=== PATIENT | male | born 1990 | race Caucasian/White ===

== ENCOUNTER 2019-10-07 12:17 | Inpatient (IN) | payer SELFPAY ==
[2019-10-07 12:21] VITALS: BMI 25.8
--- NOTE | 2019-10-07 12:22 | ED_ITS ---
Entered by Kendra Coy, acting as scribe for Daniela Ortiz MD, [facility] [place] HPI - Psych General: Chief Complaint: Psychiatric Symptoms Stated Complaint: PSYCH EVAL Time Seen by Provider: 10/07/19 12:22 Source: patient Mode of arrival: ambulatory Limitations: no limitations History of Present Illness: HPI Narrative: 29 yo Male presents to ED with complaint of suicidal ideation. Pt states that he said he would rather than listen to his mom bitching and then he was brought here. Pt states that they were arguing. Pt states that he does marijuana and speed. Pt states that he has a tv remote control with him because that is what they were arguing over. Pt states that it is his damn house and his tv. Pt states that he called the police to have his mom removed from his home and he said that he would rather be than listen to his mom bitching anymore and the police brought him here. Pt states that he is not crying because he is depressed, he is crying because he is pissed. complaint: suicidal ideation Onset (ago): hour(s) Associated symptoms: Deny auditory hallucinations Review of Systems General: Reports: 10 or more systems reviewed and unremarkable except in HPI and below Const: Denies: fever, chills or body aches Eyes: Denies: change in vision or blurry vision ENMT: Denies: throat pain, enlarged tonsils, painful swallowing, hoarseness, mouth pain or swelling of lips/tongue Card: Reports: chest pain; Denies: palpitations, irregular heart rhythm, edema or swelling of feet/ankles Resp: Denies: shortness of breath, productive cough or non-productive cough GI: Denies: abdominal pain, nausea or vomiting : Denies: flank pain, painful urination, urinary frequency, urinary urgency or urinary hesitancy Musc: Denies: neck pain, back pain or extremity swelling Skin/Breast: Denies: rash, itching or redness Neuro: Denies: headache, numbness in extremities or weakness in extremities Psych: Denies: auditory hallucinations Endo: Denies: excessive urination, excessive thirst or tired all the time PFS ED PFSH: Social History Smoking and tobacco status: current every day smoker Physical Exam Const: COMMON NORMALS: no apparent distress, average body habitus, oriented x3, no limitations, healthy appearing, alert and well nourished HENMT: COMMON NORMALS: normocephalic, head/scalp atraumatic and moist oral mucous membranes HEAD & SCALP: normocephalic and atraumatic Eye: COMMON NORMALS: PERRL, EOMs intact bilaterally, conjunctivae normal and no scleral icterus CONJUNCTIVA: Yes conjunctivae normal PUPIL: Yes PERRL Neck/C-Spine: COMMON NORMALS: full ROM, supple, no meningeal signs, no JVD and no carotid bruits Chest: COMMONS NORMALS: inspection of chest normal and palpation of chest normal Resp: COMMON NORMALS: normal respiratory effort, no retractions, no use of accessory muscles, clear to auscultation bilaterally and percussion normal AUSCULTATION: clear to auscultation bilaterally PERCUSSION: percussion normal Cardio: COMMON NORMALS: no JVD, regular rate, regular rhythm, S1 normal heart sound, S2 normal heart sound, no gallops, no clicks, no murmurs, no rub and peripheral pulses 2+ throughout RATE: regular rate RHYTHM: regular rhythm HEART SOUNDS: S1 normal and S2 normal PERIPHERAL PULSES: pulses 2+ throughout GI: COMMON NORMALS: normal to inspection, nondistended, normoactive bowel sounds, soft to palpation, non-tender, no hepatosplenomegaly, no masses and no bruits PALPATION: Yes soft and Yes no hepatosplenomegaly : COMMON NORMALS: Yes no CVA tenderness BLADDER/KIDNEY EXAM: Yes no CVA tenderness Back/Pelvis: COMMON NORMALS: no CVA tenderness Extremity: COMMON NORMALS: normal to inspection, full ROM, normal capillary refill, no calf tenderness and no pedal edema Neuro: COMMON NORMALS: oriented x3 SENSORIUM/ORIENTATION: Yes alert MENINGEAL SIGNS: Yes no meningeal signs Skin: COMMON NORMALS: no rashes or lesions noted, no wounds, skin turgor normal, no jaundice, no petechiae and no mottling GENERAL SKIN EXAM: no rashes or lesions noted and turgor normal MDM - Psych MDM Narrative: Medical decision making narrative: 29-year-old gentleman who was brought in by law enforcement after an argument with his mother and expressing desire to harm himself and suicidal ideations. He was medically cleared and admitted to the neuropsychiatric unit for further psychiatric management. The patient is voluntary at this time. Lab Data: Labs: Lab Results 10/07/19 10/07/19 10/07/19 Range/Units 12:50 12:50 15:55 WBC 7.9 (4.0-10.0) 10^3/ uL RBC 5.81 H (4.1-5.3) 10^6/u L Hgb 17.4 H (11.7-16.6) g/dL Hct 51.8 (42.0-52.0) % MCV 89.2 (80-94) fL MCH 29.9 (28.0-34.0) pg MCHC 33.6 (30.0-36.0) g/dL RDW 12.6 (12.1-15.1) % Plt Count 315 (130-400) 10^3/c mm MPV 8.8 (7.4-10.4) fL Neut % (Auto) 64.6 % Lymph % (Auto) 30.7 % Wolfe % (Auto) 4.0 % Eos % (Auto) 0.3 % Baso % (Auto) 0.1 % Neut # (Auto) 5.1 (1.8-7.7) 10^3/u L Lymph # (Auto) 2.4 (0.8-4.8) 10^3/u L Wolfe # (Auto) 0.3 (0.2-0.9) 10^3/u L Eos # (Auto) 0.0 (0.0-0.8) 10^3/u L Baso # (Auto) 0.0 (0.0-0.1) 10^3/u L Nucleated RBC % (a uto) 0 % Nucleated RBCs # 0.0 /100WBC Sodium 138 (136-145) mmol/L Potassium 3.8 (3.5-5.1) mmol/L Chloride 100 (98-107) mmol/L Carbon Dioxide 28 (22-29) mmol/L Anion Gap 13.8 (5-19) BUN 11 (6-20) mg/dL Creatinine 1.0 (0.7-1.2) mg/dL GFR Calculation 88.3 L (90-130) mL/min Glucose 137 H (65-115) mg/dL Calculated Osmolal ity 284 L (285-295) mOsm/k g Calcium 10.1 (8.5-10.5) mg/dL Total Bilirubin 0.3 (0.15-1.2) mg/dL AST 18 (0-40) U/L ALT 17 (0-41) U/L Alkaline Phosphata se 94 (40-130) IU/L Total Protein 7.3 (6.6-8.7) g/dL Albumin 4.6 (3.5-5.2) g/dL Globulin 2.7 (1.3-4.6) g/dL Urine Color Dark yellow (Yellow) Urine Appearance Clear (CLEAR) Urine pH 6.5 (5-7) Ur Specific Gravit y 1.015 (1.005-1.030) Urine Protein Neg (Negative) Urine Glucose (UA) Norm (Normal) Urine Ketones 1+ H (Negative) Urine Blood Neg (Negative) Urine Nitrate Negative (Negative) Urine Bilirubin Neg (NEGATIVE) Urine Urobilinogen 8 H (Negative) mg/dL Ur Leukocyte Stephanie ase Negative (Negative) Salicylates < 0.3 L (3-10) mg/dL Urine Opiates Scre en (Negative) ng/mL Acetaminophen < 5.0 L (10-30) ug/mL Ur Barbiturates Sc reen (Negative) ng/mL Ur Phencyclidine S crn (Negative) ng/mL Ur Amphetamines Sc reen (Negative) ng/mL U Benzodiazepines Scrn (Negative) ng/mL Urine Cocaine Scre en (Negative) ng/mL U Marijuana (THC) Screen (Negative) ng/mL Ethyl Alcohol < 10 (0-10) mg/dL 10/07/19 Range/Units 15:55 WBC (4.0-10.0) 10^3/ uL RBC (4.1-5.3) 10^6/u L Hgb (11.7-16.6) g/dL Hct (42.0-52.0) % MCV (80-94) fL MCH (28.0-34.0) pg MCHC (30.0-36.0) g/dL RDW (12.1-15.1) % Plt Count (130-400) 10^3/c mm MPV (7.4-10.4) fL Neut % (Auto) % Lymph % (Auto) % Wolfe % (Auto) % Eos % (Auto) % Baso % (Auto) % Neut # (Auto) (1.8-7.7) 10^3/u L Lymph # (Auto) (0.8-4.8) 10^3/u L Wolfe # (Auto) (0.2-0.9) 10^3/u L Eos # (Auto) (0.0-0.8) 10^3/u L Baso # (Auto) (0.0-0.1) 10^3/u L Nucleated RBC % (a uto) % Nucleated RBCs # /100WBC Sodium (136-145) mmol/L Potassium (3.5-5.1) mmol/L Chloride (98-107) mmol/L Carbon Dioxide (22-29) mmol/L Anion Gap (5-19) BUN (6-20) mg/dL Creatinine (0.7-1.2) mg/dL GFR Calculation (90-130) mL/min Glucose (65-115) mg/dL Calculated Osmolal ity (285-295) mOsm/k g Calcium (8.5-10.5) mg/dL Total Bilirubin (0.15-1.2) mg/dL AST (0-40) U/L ALT (0-41) U/L Alkaline Phosphata se (40-130) IU/L Total Protein (6.6-8.7) g/dL Albumin (3.5-5.2) g/dL Globulin (1.3-4.6) g/dL Urine Color (Yellow) Urine Appearance (CLEAR) Urine pH (5-7) Ur Specific Gravit y (1.005-1.030) Urine Protein (Negative) Urine Glucose (UA) (Normal) Urine Ketones (Negative) Urine Blood (Negative) Urine Nitrate (Negative) Urine Bilirubin (NEGATIVE) Urine Urobilinogen (Negative) mg/dL Ur Leukocyte Stephanie ase (Negative) Salicylates (3-10) mg/dL Urine Opiates Scre en Negative (Negative) ng/mL Acetaminophen (10-30) ug/mL Ur Barbiturates Sc reen Negative (Negative) ng/mL Ur Phencyclidine S crn Negative (Negative) ng/mL Ur Amphetamines Sc reen Positive H (Negative) ng/mL U Benzodiazepines Scrn Negative (Negative) ng/mL Urine Cocaine Scre en Negative (Negative) ng/mL U Marijuana (THC) Screen Positive H (Negative) ng/mL Ethyl Alcohol (0-10) mg/dL Discharge Plan Discharge Patient Disposition: Admitted As Inpatient Admit Provider: Marty Lares Clinical Impression: Suicidal ideation, Polysubstance abuse Condition: Stable Interventions: ED Discharge Assessment Last Done: 10/07/19 20:16 Discharge Date/Time: 10/07/19 20:35 Coding Level of Care Code ED Barrel Assembler Helper for Chg Fwd The documentation recorded by the Anneliese dash Carmen, accurately reflects the service I personally performed and the decisions made by Angel richardson Adegoke I, MD, [facility] [place] Oct 07, 2019 12:17
[2019-10-07 12:27] VITALS: BP 129/91; PULSE 115; RESP 16; TEMP 37.3; O2SAT 96
--- NOTE | 2019-10-07 12:50 | XR_ITS ---
WS: [id number] XR chest 2V* [id number] REASON FOR EXAM: cough FINDINGS: The lung walsh are normally aerated. No active infiltrate seen. No pneumonia, pleural effu shelbie, pulmonary edema. The hilar and apices areas are normal. The heart is normal mediastinal interfaces normal. No osseous abnormalities. XR/XR chest 2V* [id number] IMPRESSION: Negative chest for active pathology.
[2019-10-07 12:56] LABS: Basophils % 0.1 %; Eosinophils % 0.3 %; Hematocrit 51.8 % (42.0-52.0); Hemoglobin 17.4 g/dL (11.7-16.6); Lymphocytes # 2.4 10^3/uL (0.8-4.8); Lymphocytes % 30.7 %; Mean Corpuscular HGB Conc 33.6 g/dL (30.0-36.0); Mean Corpuscular Hemoglobin 29.9 pg (28.0-34.0); Mean Corpuscular Volume 89.2 fL (80-94); Mean Platelet Volume 8.8 fL (7.4-10.4); Monocytes # 0.3 10^3/uL (0.2-0.9); Neutrophils # 5.1 10^3/uL (1.8-7.7); Neutrophils % 64.6 %; Nucleated Red Blood Cells % 0 %; Platelet Count 315 10^3/cmm (130-400); Red Blood Count 5.81 10^6/uL (4.1-5.3); Red Cell Distribution Width 12.6 % (12.1-15.1); White Blood Count 7.9 10^3/uL (4.0-10.0)
[2019-10-07] MEDS: nicotine 21 mg Patch 1 PATCH TRANSDERMA (13:01)
[2019-10-07] MEDS: ibuprofen 600 mg Tablet PO (13:01)
[2019-10-07 13:11] LABS: Alanine Aminotransferase 17 U/L (0-41); Albumin Level 4.6 g/dL (3.5-5.2); Alkaline Phosphatase 94 IU/L (40-130); Anion Gap 13.8 (5-19); Aspartate Amino Transferase 18 U/L (0-40); Blood Urea Nitrogen 11 mg/dL (6-20); Calcium 10.1 mg/dL (8.5-10.5); Carbon Dioxide 28 mmol/L (22-29); Chloride 100 mmol/L (98-107); Globulin 2.7 g/dL (1.3-4.6); Glomerular Filtration Rate 88.3 mL/min (90-130); Glucose 137 mg/dL (65-115); Osmolality Calculated 284 mOsm/kg (285-295); Potassium 3.8 mmol/L (3.5-5.1); Sodium 138 mmol/L (136-145); Total Bilirubin 0.3 mg/dL (0.15-1.2); Total Protein 7.3 g/dL (6.6-8.7)
[2019-10-07 13:13] LABS: Acetaminophen < 5.0 ug/mL (10-30); Alcohol Level < 10 mg/dL (0-10); Salicylate < 0.3 mg/dL (3-10)
[2019-10-07 16:16] LABS: Add Urine Microscopic? NO
[2019-10-07 16:29] LABS: Glucose Urine UA Norm (Normal); Ketones Urine 1+ (Negative); Protein Urine Neg (Negative); Specific Gravity, Urine 1.015 (1.005-1.030); Urine Appearance Clear (CLEAR); Urine Color Dark Yellow (Yellow); pH Urine 6.5 (5-7)
[2019-10-07 16:30] LABS: Bilirubin Urine Neg (NEGATIVE); Blood Urine Neg (Negative); Leukocyte Esterase Urine Negative (Negative); Nitrate Urine Negative (Negative); Urobilinogen Urine 8 mg/dL (Negative)
[2019-10-07 16:38] LABS: Amphetamines Screen Urine Positive (Negative); Barbiturates Screen Urine Negative (Negative); Benzodiazepines Screen Urine Negative (Negative); Cocaine Screen Urine Negative (Negative); Opiate Screen Urine Negative (Negative); PCP Screen Urine Negative (Negative); THC Screen Urine Positive (Negative)
[2019-10-07] MEDS: acetaminophen 500 mg Tablet 1000 MG PO (17:55)
[2019-10-07 18:57] VITALS: BP 126/83; PULSE 73; RESP 19; TEMP 36.6; O2SAT 100
[2019-10-07] MEDS: LORazepam 2 mg Tablet PO (20:11)
[2019-10-07 20:16] VITALS: BP 126/80; PULSE 74; RESP 16; O2SAT 97
[2019-10-07 22:00] VITALS: BP 126/83; PULSE 73; RESP 19; TEMP 36.6; O2SAT 100
[2019-10-08 05:32] VITALS: BP 99/65; PULSE 76; RESP 17; TEMP 36.6; O2SAT 98
[2019-10-08] MEDS: acetaminophen 325 mg Tablet 650 MG PO (07:52)
[2019-10-08] MEDS: nicotine 2 mg Gum BUCCAL (11:05)
[2019-10-08 13:18] VITALS: BP 104/67; PULSE 81; RESP 18; TEMP 37.2; O2SAT 98
--- NOTE | 2019-10-08 13:19 | XR_ITS ---
WS: [id number] XR ribs RT mn 3V w CXR1V [id number] REASON FOR EXAM: trauma to right side FINDINGS: The right rib cage appears to be intact there is no definite fractures or displacements not ed. There was no pleural effusion seen. No pneumothorax. XR/XR ribs RT mn 3V w CXR1V [id number] IMPRESSION: Negative right rib study.
[2019-10-08] MEDS: meloxicam 7.5 mg tablet 15 MG PO (13:34)
--- NOTE | 2019-10-08 13:36 | PC.NURSE ---
OFF UNIT TO X-RAY. ACCOMPANIED BY SECURITY & FACING SLITTER
--- NOTE | 2019-10-08 13:49 | PC.NURSE ---
RETURN TO UNIT FROM X-RAY
--- NOTE | 2019-10-08 19:23 | PC.NURSE ---
pt given nicorette gum per pt request.
--- NOTE | 2019-10-08 19:29 | P.HP_ITS ---
Providers/Chief Complaint Admitting Physician: Marty Lares MD Chief Complaint: PSYCH EVAL HPI NPU History of Present Illness Chief complaint: I take nothing getting going in the morning and isolate marijuana to help me relax at night. History of present illness:Evert Worrell is a 29 year old male Who would like to have fine medication to replace his methamphetamine and marijuana use. His chief complaint is one of chronic pain. He says that when he tries to stop using methamphetamine he has a lot of pain cannot list any specific source of the pain other than it just hurts all over. It hurts in my joints. He says that he had something to get him going in the morning and to keep him from being in pain, he could quit using the methamphetamine. He has no intention of going to a rehabilitation program. He says They are bullshit. He went [facility] [place] years ago and they used more drugs at the rehabilitation program than out on the street.He says he is depressed. He has suicidal thoughts. However no time did he indicate an intent or plan. He is not employed. He is a engaged in no self-esteem goal-directed activities.Laboratory Tests 10/07/19 10/07/19 12:50 15:55 Urine Opiates Screen Negative Ur Barbiturates Screen Negative Ur Phencyclidine Scrn Negative Ur Amphetamines Screen Positive H U Benzodiazepines Scrn Negative Urine Cocaine Screen Negative U Marijuana (THC) Screen Positive H Ethyl Alcohol < 10 ER physician note: 29 yo Male presents to ED with complaint of suicidal ideation. Pt states that he said he would rather than listen to his mom bitching and then he was brought here. Pt states that they were arguing. Pt states that he does marijuana and speed. Pt states that he has a tv remote control with him because that is what they were arguing over. Pt states that it is his [employer] house and his tv. Pt states that he called the police to have his mom removed from his home and he said that he would rather be than listen to his mom bitching anymore and the police brought him here. Pt states that he is not crying because he is depressed, he is crying because he is pissed. Mental health history:He has no prior psychiatric hospitalizations. He says he has tried all kinds of antidepressant medications and said none of them helped him and they all had side effects. He is not interested in trying another antidepressant. Social history:He currently lives with his mother. Legal history:He has convictions on possession in 2017, DWI in 2016, and speeding in 2012. Past medical history:Please see his emergency room nursing notes Mental Status Exam: Patient is immediately dismissive and challenging and attitude. He is not believed to be along the form of as he provides minimal information and refuses to provide information and he doesn't think is important. Appearance: hygiene is fair; no gross neurological deficits., gait is unremarkable; AIMS=0 Speech: Speech is of normal rate and rhythm and easily understood. Thought processes: Thought processes are abstract. Judgment is adequate for safety. Psychotic processes: There is no indication of guarding or paranoia. There is no attention to the internal stimuli. Auditory and visual hallucinations are denied. Judgment: Insight is fair. Problem solving skills are adequate for safety. Orientation: The patient is oriented to person, place time and situation. Memory: no deficits noted in immediate, intermediate, or remote spheres. Attention: The patient is alert and interpersonally engaged. Language: Verbalizations are coherent. Fund of knowledge: Fund of knowledge is adequate. Affect/Mood: Affect is consistent with a depressed mood. denied suicidal ideation Affective range appropriate. Psychosis: perception unimpaired except through cognitive distortion; reality testing intact. Diagnoses: methamphetamine abuse Assessment: perhaps he will gain insight and engage in treatment planning to haydee l with the issues that led to his hospitalization Treatment plan: Due to the psychiatric conditions and treatment listed in the Assessment and Plan - the patient requires continued hospitalization. Will provide a safe and therapeutic environment for patient.. Will continue inpatient treatment to allow for medication adjustment and monitoring. Will continue q15 min safety checks. Start Mobic 15 mg for pain Monitor patient's mood, sleep, appetite, and behavior closely. Encourage patient to participate in individual and group therapeutic sessions [place]. Estimated length of stay 5 days The expected benefits and potential side effects of patient's psychiatric medications were discussed with the patient. The patient understands and consents to treatment.CRITERIA FOR DISCHARGE: stable on medications and no longer an imminent risk Meds NPU Home Medications Medication Instructions Recorded Confirmed Type No Known Home Medications 10/07/19 10/07/19 History Allergies Allergy/AdvReac Type Severity Reaction Status Date / Time No Known Allergies Allergy Verified 10/07/19 12:25 PFSH NPU PFSH: Social History Smoking and tobacco status: current every day smoker Vitals/I&O/Wt Last Vital Signs Temp 98.9 F 10/08/19 13:18 Pulse 81 10/08/19 13:18 Resp 18 10/08/19 13:18 BP 104/67 10/08/19 13:18 Pulse Ox 98 10/08/19 13:18 Weight last 48 hrs Weight 72.575 kg Data NPU : 10/07/19 12:50 10/07/19 12:50 Involuntary Hold Information 96 Hour Hold: 96 Hour Involuntary Admission: No Attestations NPU Medical Necessity Statement*: Patient to remain in the hospital 1-2 more nights until we can det termine medication tolerance. Coding Level of Care Code Acute Automatic Bandsaw Tender for Franko Polk
--- NOTE | 2019-10-08 20:35 | PC.NURSE ---
pt has no scheduled HS meds to be given at this time.
[2019-10-08 21:27] VITALS: BP 98/52; PULSE 83; RESP 20; TEMP 36.9; O2SAT 98
[2019-10-09 05:56] VITALS: BP 111/74; PULSE 58; RESP 17; TEMP 36.8; O2SAT 98
[2019-10-09] MEDS: meloxicam 7.5 mg tablet 15 MG PO (08:00)
[2019-10-09] MEDS: acetaminophen 325 mg Tablet 650 MG PO (08:00)
--- NOTE | 2019-10-09 12:50 | PM.NDC ---
Reason for Visit Reason for Visit: Reason For Visit: Critical access hospital Course Discharge Summary Chief complaint: I take methamphetamine to get going in the morning and marijuana to help me relax at night. History of present illness:Evert Worrell is a 29 year old male Who would like to have medication to replace his methamphetamine and marijuana use. His chief complaint is one of chronic pain. He says that when he tries to stop using methamphetamine he has a lot of pain but cannot list any specific source of the pain other than it just hurts all over. It hurts in my joints. He says that if he had something to get him going in the morning and to keep him from being in pain, he could quit using the methamphetamine. He has no intention of going to a rehabilitation program. He says They are bullshit. He went to one in [place] years ago and they used more drugs at the rehabilitation program than out on the street. He says he is depressed. He has suicidal thoughts. However no time did he indicate an intent or plan. He is not employed. He is a engaged in no self-esteem goal-directed activities.Laboratory Tests 10/07/19 10/07/19 12:50 15:55 Urine Opiates Screen Negative Ur Barbiturates Screen Negative Ur Phencyclidine Scrn Negative Ur Amphetamines Screen Positive H U Benzodiazepines Scrn Negative Urine Cocaine Screen Negative U Marijuana (THC) Screen Positive H Ethyl Alcohol < 10 ER physician note: 29 yo Male presents to ED with complaint of suicidal ideation. Pt states that he said he would rather than listen to his mom bitching and then he was brought here. Pt states that they were arguing. Pt states that he does marijuana and speed. Pt states that he has a tv remote control with him because that is what they were arguing over. Pt states that it is his [employer] house and his tv. Pt states that he called the police to have his mom removed from his home and he said that he would rather be than listen to his mom bitching anymore and the police brought him here. Pt states that he is not crying because he is depressed, he is crying because he is pissed. Mental health history:He has no prior psychiatric hospitalizations. He says he has tried all kinds of antidepressant medications and said none of them helped him and they all had side effects. He is not interested in trying another antidepressant. Social history:He currently lives with his mother. Legal history:He has convictions on possession in 2017, DWI in 2016, and speeding in 2013. Past medical history:Please see his emergency room nursing notes Diagnoses: methamphetamine abuse narcissistic personality disorder Assessment: HE is extremely sensitive to perceived disrespect and dismissive of any treatment recommendations that do not fit with his perceived needs. Perhaps he will gain insight and engage in treatment planning to deal with the issues that led to his hospitalization. Hospital Day #2: He admits that we aren't doing anything to help him here. He is willing to take an antidepressant with the idea that it will help him get off of methamphetamine. He mentioned something about going to the [facility] for rehab. He was educated that perhaps the executive secretary social welfare could help him explore rehab services. He then returned to asking for medication so that he would not have to use meth to get up in the morning and to focus his attention. Maybe you could give me something to help with that. He then requested to be discharged because we were disrespecting him. Discharge Mental Status Exam: Patient is dismissive and challenging in attitude. He is not believed to be a reliable source of information. Appearance: hygiene is fair; no gross neurological deficits., gait is unremarkable; AIMS=0 Speech: Speech is of normal rate and rhythm and easily understood. Thought processes: Thought processes are abstract. Judgment is adequate for safety. Psychotic processes: There is no indication of guarding or paranoia. There is no attention to the internal stimuli. Auditory and visual hallucinations are denied. Judgment: Insight is fair. Problem solving skills are adequate for safety. Orientation: The patient is oriented to person, place time and situation. Memory: no deficits noted in immediate, intermediate, or remote spheres. Attention: The patient is alert and interpersonally engaged. Language: Verbalizations are coherent. Fund of knowledge: Fund of knowledge is adequate. Affect/Mood: Affect is consistent with a depressed mood. denied suicidal ideation Affective range appropriate. Psychosis: perception unimpaired except through cognitive distortion; reality testing intact. Involuntary Hold Information 96 Hour Hold: 96 Hour Involuntary Admission: No Discharge Data Data Completed and Pending: Completed Studies During Hospitalization Category Date Time Status XR chest 2V* 7104 6 Stat Exams 10/07/19 12:50 Completed XR ribs RT mn 3V w CXR1V [id number] Rout ine Exams 03/18/20 13:19 Completed Vitals: Last Vital Signs Temp 98.2 F 10/09/19 05:56 Pulse 58 L 10/09/19 05:56 Resp 17 10/09/19 05:56 BP 111/74 10/09/19 05:56 Pulse Ox 98 10/09/19 05:56 Discharge Plan Discharge Patient Disposition: Home, Self-Care Condition: Stable Prescriptions: No Action No Known Home Medications RF: 0 Discharge Orders: Discharge Order (Routine); Ordered 10/09/19 Ordered By: Marty Lares Discharge Attestations NPU Time Spent in Discharge Care*: greater than 30 min Coding Level of Care Code Acute Music Intern for Franko Polk
[2019-10-09 13:59] VITALS: BP 111/74; PULSE 58; RESP 17; TEMP 36.8; O2SAT 98
== END 2019-10-09 14:15 | disposition home or self-care (01) | DRG 897 ==
LOC: ER 13:19 → NP 19:31
PROVIDERS: Admitting Provider Psychiatry & Neurology Psychiatry; Emergency Provider Family Medicine; Visit Provider Psychiatry & Neurology Psychiatry
DX: F15.229 Other stimulant dependence with intoxication, unspecified (principal); R45.851 Suicidal ideations; F12.229 Cannabis dependence with intoxication, unspecified; F60.81 Narcissistic personality disorder; F17.210 Nicotine dependence, cigarettes, uncomplicated
CPT/HCPCS: 12345; 36415; 71046; 71101; 80053; 80306; 80307; 81003; 85025; 99284; A9270

== ENCOUNTER 2019-12-03 19:19 | Emergency (ER) | payer SELFPAY ==
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
[2019-12-03 19:09] VITALS: BP 129/79; PULSE 100; RESP 22; TEMP 36.8; O2SAT 100; BMI 28.1
[2019-12-03] MEDS: iohexol 300 mg/mL 100 mL Btl IV (19:21)
[2019-12-03 19:38] LABS: Basophils % 0.1 %; Eosinophils % 0.5 %; Hematocrit 41.1 % (42.0-52.0); Hemoglobin 13.8 g/dL (11.7-16.6); Lymphocytes # 2.2 10^3/uL (0.8-4.8); Lymphocytes % 27.5 %; Mean Corpuscular HGB Conc 33.6 g/dL (30.0-36.0); Mean Corpuscular Hemoglobin 30.3 pg (28.0-34.0); Mean Corpuscular Volume 90.1 fL (80-94); Mean Platelet Volume 8.8 fL (7.4-10.4); Monocytes # 0.4 10^3/uL (0.2-0.9); Monocytes % 4.7 %; Neutrophils # 5.5 10^3/uL (1.8-7.7); Neutrophils % 67.1 %; Nucleated Red Blood Cells % 0 %; Platelet Count 251 10^3/cmm (130-400); Red Blood Count 4.56 10^6/uL (4.1-5.3); Red Cell Distribution Width 12.9 % (12.1-15.1); White Blood Count 8.1 10^3/uL (4.0-10.0)
[2019-12-03 19:54] LABS: Alanine Aminotransferase 18 U/L (0-41); Albumin Level 3.9 g/dL (3.5-5.2); Alkaline Phosphatase 75 IU/L (40-130); Anion Gap 10.1 (5-19); Aspartate Amino Transferase 18 U/L (0-40); Blood Urea Nitrogen 8 mg/dL (6-20); Calcium 9.3 mg/dL (8.5-10.5); Carbon Dioxide 26 mmol/L (22-29); Chloride 103 mmol/L (98-107); Creatine Phosphokinase 70 U/L (39-308); Globulin 2.1 g/dL (1.3-4.6); Glomerular Filtration Rate 99.8 mL/min (90-130); Glucose 106 mg/dL (65-115); Osmolality Calculated 276 mOsm/kg (285-295); Potassium 4.1 mmol/L (3.5-5.1); Sodium 135 mmol/L (136-145); Total Bilirubin 0.2 mg/dL (0.15-1.2)
[2019-12-03 19:56] LABS: Troponin(5th) Baseline 6 ng/mL (0-15)
[2019-12-03] MEDS: ondansetron 2 mg/ML SDV 2 mL 4 MG IVP (20:12)
[2019-12-03 20:37] VITALS: BP 116/78; PULSE 98; RESP 18; O2SAT 99
[2019-12-03 20:55] LABS: Amphetamines Screen Urine Positive (Negative); Bacteria Urine TRACE; Barbiturates Screen Urine Negative (Negative); Benzodiazepines Screen Urine Negative (Negative); Bilirubin Urine Neg (NEGATIVE); Blood Urine Neg (Negative); Cocaine Screen Urine Negative (Negative); Glucose Urine UA Norm (Normal); Hyaline Casts Urine 0-4; Ketones Urine Negative (Negative); Leukocyte Esterase Urine Negative (Negative); Nitrate Urine Negative (Negative); Opiate Screen Urine Negative (Negative); PCP Screen Urine Negative (Negative); Protein Urine Neg (Negative); Specific Gravity, Urine 1.005 (1.005-1.030); Squamous Epithelial Cell Urine 0-4 (0-5); THC Screen Urine Positive (Negative); Urine Appearance Clear (CLEAR); Urine Color Yellow (Yellow); Urobilinogen Urine Norm (Negative); pH Urine 7 (5-7)
[2019-12-03 20:56] LABS: Add Urine Culture? No
--- NOTE | 2019-12-03 21:02 | ECG_ITS ---
Measurements Intervals [place] Rate: 95 P: 78 GA: 147 QRS: 83 QRSD: 94 T: 83 QT: 330 QTc: 416 SINUS RHYTHM No previous ECG available for comparison Electronically Signed On 12-03-2019 20:36:26 CDT by Paula Bhardwaj M.D. [email or web address]
== END 2019-12-03 20:38 | disposition home or self-care (01) ==
PROVIDERS: Emergency Provider Emergency Medicine
DX: T75.4XXA Electrocution, initial encounter (principal); Y35.833A Legal intervention involving a conducted energy device, suspect injured, initial encounter; F17.210 Nicotine dependence, cigarettes, uncomplicated
CPT/HCPCS: 12345; 36415; 70450; 71260; 74177; 80053; 80306; 81001; 82550; 84484; 85025; 93005; 96361; 96374; 99283; 99284; J2405; Q9967

== ENCOUNTER 2020-01-07 09:10 | Emergency (ER) | payer SELFPAY ==
[2020-01-07 09:13] VITALS: BMI 27.4
[2020-01-07 09:18] VITALS: BP 136/80; PULSE 91; RESP 16; TEMP 36.9; O2SAT 98
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
== END 2020-01-07 09:28 | disposition home or self-care (01) ==
PROVIDERS: Emergency Provider Nurse Practitioner Family
DX: K14.6 Glossodynia (principal); F17.210 Nicotine dependence, cigarettes, uncomplicated; X10.0XXA Contact with hot drinks, initial encounter
CPT/HCPCS: 12345; 99281

== ENCOUNTER 2021-09-21 09:10 | Emergency (ER) | payer SELFPAY ==
--- NOTE | 2021-09-21 09:12 | XR_ITS ---
WS: [id number] Left foot, 3 views, 09/21/2021 Clinical Data: trauma Comparison: None. Findings: There is a transverse fracture of the midshaft of the left second metatarsal. No other fractures are seen. The joint spaces and soft tissues are normal. XR/XR foot LT min 3V* [id number] Impression: Fracture of the midshaft of the left second metatarsal.
[2021-09-21 09:42] VITALS: BP 131/91; PULSE 74; RESP 18; TEMP 37; O2SAT 98; BMI 34.7
--- NOTE | 2021-09-21 09:53 | ED_ITS ---
HPI - Extremity Injury (Lower) General: Chief Complaint: Extremity Injury, Lower Stated Complaint: Possible broken left foot Time Seen by Provider: 09/21/21 09:16 Source: patient Mode of arrival: ambulatory Limitations: no limitations History of Present Illness: Patient is a 31-year-old male who presents to ED today for evaluation following a left foot injury that occurred approximately 3 to 4 days ago after he dropped a 500 pound piece of machinery onto the foot. Patient states he has been hobbling around since the injury. He has noticed swelling and bruising to the foot. He has been icing and elevating the extremity. complaint: foot injury Onset (ago): day(s) Place: home Severity: moderate Relieving factors: immobilization Exacerbating factors: weight bearing, movement and palpation Context: direct blow Associated symptoms: Reports no associated symptoms Other symptoms: none Treatments prior to arrival: cold therapy Review of Systems Musc: Reports: extremity pain (L foot) and extremity swelling (L foot) Neuro: Denies: numbness in extremities or sensory changes [facility] ED PFSH: Medical History (Updated 09/21/21 @ 09:59 by CHAYO Zarate) Polysubstance abuse Surgical History No history of previous surgery Social History Smoking and tobacco status: current every day smoker Alcohol intake: current Physical Exam Const: COMMON NORMALS: no acute distress, patient oriented x3, no limitations and alert GENERAL APPEARANCE: cooperative Extremity: GENERAL: Yes normal exam except as noted LEFT LOWER EXTREMITY: Yes foot & digits (swelling and ecchymosis throughout dorsum of foot; no obvious deformity) Left foot and digits: Yes palpation (maximum tenderness to mid dorsal foot), Yes ROM (normal) and Yes neurovascular exam (normal) Neuro: COMMON NORMALS: patient oriented x3, moves all extremities, no focal motor deficits and no sensory deficits noted SENSORIUM/ORIENTATION: Yes alert Course Vital Signs: Vital signs: Vital Signs Temperature 98.6 F 09/21/21 09:42 Pulse Rate 74 09/21/21 09:42 Respiratory Rate 18 09/21/21 09:42 Blood Pressure 131/91 09/21/21 09:42 Pulse Oximetry 98 09/21/21 09:42 MDM - Extremity Injury (Lower) Medical Decision Making Patient has a non-displaced 2nd metatarsal fracture. He does not want any type of splint/cam walker as he states he must return to work because he has no insurance and needs the money. He will be placed in a firm soled darco shoe here and recommended to wear a very supportive firm boot while at work which he agrees to. Will give crutches that he can use as well if needed when he isn't working. Will place referral to ortho/podiatry for further evaluation/treatment. Discharge Plan Discharge Patient Disposition: Home Clinical Impression: Fracture of metatarsal bone of left foot Qualifiers: Encounter type: initial encounter Metatarsal bone: second Fracture type: closed Fracture alignment: nondisplaced Qualified Code(s): S92.325A - Nondisplaced fracture of second metatarsal bone, left foot, initial encounter for closed fracture Condition: Stable Prescriptions: New hydrocodone-acetaminophen 5-325 mg tablet 1 tab PO Q6H PRN (Reason: pain) Qty: 14 0RF ibuprofen 800 mg tablet 800 mg PO Q8H PRN (Reason: pain) Qty: 20 0RF No Action OraMagicRx Mouthwash See Rx Instructions .ROUTE .COMPLEX Qty: 60 0RF Rx Instructions: Swish and spit 5 ml as needed to control pain in tongue Discharge Orders: Discharge ED (Routine); Ordered 09/21/21 Ordered By: Maryjane Fox Activity Restrictions/Additional Instructions: As we discussed you need to wear a firm soled boot at all times while at work. You need to wear the surgical shoe when you are not working. You may also use the crutches as needed to limit weightbearing. Continue to ice and elevate the extremity as much as possible. Case management should contact you shortly for your follow-up orthopedic appointment. Stand Alone Forms: Work/School Release Coding Level of Care Code ED Link Trainer Operator for Franko Polk
--- NOTE | 2021-09-21 10:48 | DCPLANNER ---
Addendum entered by Akosua Farnsworth 09/23/21 13:44: physician relations manager spoke with [facility], was told that clinic has not been able to reach patient to schedule an appointment. Original Note: physician relations manager had message to schedule a follow up appointment for patient with ortho. physician relations manager called the ortho clinic, spoke with Rashmi, gave clinic patients information. physician relations manager was told that patients information would be printed and reviewed. Clinic will call patient with appointment information.
== END 2021-09-21 11:00 | disposition home or self-care (01) ==
PROVIDERS: Emergency Provider Physician Assistant
DX: S92.325A Nondisplaced fracture of second metatarsal bone, left foot, initial encounter for closed fracture (principal); F17.210 Nicotine dependence, cigarettes, uncomplicated; W20.8XXA Other cause of strike by thrown, projected or falling object, initial encounter
CPT/HCPCS: 73630; 99283; E0114

== ENCOUNTER → 2021-09-27 11:20 | Outpatient (BNVA) | payer SELFPAY | PROVIDERS: Referring Provider Physician Assistant; Visit Provider Podiatrist Foot & Ankle Surgery | DX: S99.921A Unspecified injury of right foot, initial encounter (principal); X58.XXXA Exposure to other specified factors, initial encounter | CPT/HCPCS: 73630 ==

== ENCOUNTER 2021-09-27 16:17 | Outpatient (CLI) | payer SELFPAY | END 2021-09-27 16:18 | disposition home or self-care (01) | LOC: SPT 16:17 | PROVIDERS: Visit Provider Podiatrist Foot & Ankle Surgery | DX: Z46.89 Encounter for fitting and adjustment of other specified devices (principal); S92.302D Fracture of unspecified metatarsal bone(s), left foot, subsequent encounter for fracture with routine healing; X58.XXXD Exposure to other specified factors, subsequent encounter | CPT/HCPCS: 97760; L4361 ==

== ENCOUNTER → 2021-10-12 15:46 | Outpatient (BNVA) | payer SELFPAY | PROVIDERS: Visit Provider Podiatrist Foot & Ankle Surgery | DX: S92.332A Displaced fracture of third metatarsal bone, left foot, initial encounter for closed fracture (principal); X58.XXXA Exposure to other specified factors, initial encounter | CPT/HCPCS: 73630 ==

== ENCOUNTER → 2021-11-09 14:47 | Outpatient (BNVA) | payer SELFPAY | PROVIDERS: Visit Provider Podiatrist Foot & Ankle Surgery | DX: S92.322D Displaced fracture of second metatarsal bone, left foot, subsequent encounter for fracture with routine healing (principal); X58.XXXD Exposure to other specified factors, subsequent encounter | CPT/HCPCS: 73630 ==

== ENCOUNTER → 2022-06-20 12:25 | Outpatient (BNVA) | payer BC, SELFPAY | PROVIDERS: Visit Provider Emergency Medicine | DX: R50.9 Fever, unspecified (principal); R51.9 Headache, unspecified; J10.1 Influenza due to other identified influenza virus with other respiratory manifestations; G44.89 Other headache syndrome | CPT/HCPCS: 87400; 87426 ==

== ENCOUNTER → 2023-01-17 16:32 | Outpatient (BNVA) | payer BC, SELFPAY | PROVIDERS: PCP Family Medicine; Visit Provider Surgery | DX: R22.9 Localized swelling, mass and lump, unspecified (principal) | CPT/HCPCS: 88307 ==

== ENCOUNTER 2023-08-31 01:57 | Emergency (ER) | payer MEDICAID, SELFPAY ==
[2023-08-31 01:58] VITALS: BP 134/93; PULSE 79; RESP 16; TEMP 36.7; O2SAT 100; BMI 25.1
--- NOTE | 2023-08-31 02:10 | ED_ITS ---
HPI - General Adult 2 General: Chief complaint: General Medical Stated complaint: Drug detox Time Seen by Provider: 08/31/23 01:58 History of Present Illness: Patient presents to the ER by EMS with complaints of wanting drug detox. Patient states he is a frequent meth user last use about a day and a half ago and wants detox and to get off the drugs. Patient's only complaint is has a couple superficial lumps 1 on his chest 1 is left groin that he thinks are old healing spider bites and he says he has teeth pain on the left side. Other than he is patient has no complaints. Patient denies suicidal or homicidal ideation. Review of Systems 2 General: Reports: 10 or more systems reviewed and unremarkable except in HPI and below PFSH ED 2 PFSH: Medical History Polysubstance abuse Surgical History History of excision of epidermal inclusion cyst No history of previous surgery Social History Smoking and tobacco/nicotine status: current every day tobacco/nicotine user Alcohol intake: current Substance/Drug Use: current Physical Exam 2 Const: COMMON NORMALS: no acute distress, average body habitus, patient oriented x3, no limitations, healthy appearing, alert and well nourished HENMT: COMMON NORMALS: normocephalic, atraumatic, hearing grossly normal bilaterally, external ears normal, Normal external nose present, moist oral mucous membranes and oropharynx normal HEAD & SCALP: normocephalic and atraumatic NOSE: Normal external nose present EXTERNAL EAR: Yes external ears normal Eye: COMMON NORMALS: Equal, round and reactive pupils present, EOMs intact bilaterally, conjunctivae normal and no scleral icterus CONJUNCTIVA: Yes conjunctivae normal PUPIL: Yes Equal, round and reactive pupils present Neck/C-Spine: COMMON NORMALS: no JVD Chest: COMMONS NORMALS: normal inspection of the chest and normal palpation of entire chest wall Resp: COMMON NORMALS: normal respiratory effort, No retractions, No use of accessory muscles and clear to auscultation bilaterally AUSCULTATION: clear to auscultation bilaterally Cardio: COMMON NORMALS: no JVD, regular rate, regular rhythm, S1 normal heart sound present, S2 normal heart sound present, No gallops present (Cardio), No clicks present (Cardio), No murmurs present (Cardio) and No rub (Cardio) R ATE: regular rate RHYTHM: regular rhythm HEART SOUNDS: S1 normal heart sound present and S2 normal heart sound present GI: COMMON NORMALS: Normal to inspection, nondistended, normoactive bowel sounds present, non-tender, No hepatosplenomegaly present and no masses P ALPATION: Yes No hepatosplenomegaly present Neuro: COMMON NORMALS: patient oriented x3 SENSORIUM/ORIENTATION: Yes alert Course 2 Vital Signs: Vital signs: Vital Signs Temperature 98.1 F 08/31/23 01:58 Pulse Rate 79 08/31/23 01:58 Respiratory Rate 16 08/31/23 01:58 Blood Pressure 134/93 08/31/23 01:58 Pulse Oximetry 100 08/31/23 01:58 Oxygen Delivery Me thod Room Air 08/31/23 01:58 MDM - General Adult Medical Decision Making Patient was worked up for medical clearance standpoint. It was explicitly described to the patient that we are not a drug detox, we do not have inpatient drug detox and in the best we can do for him is have case management call around and see if they can get him an outpatient detox later in the day. Patient is okay with this Differential Diagnosis Substance abuse Medical Records I reviewed the patient's medical records. Lab Data I reviewed the patient's lab results. 08/31/23 02:24 08/31/23 02:24 Laboratory Results WBC 8.12 10^3/uL (3.29-11.43) 08/31/23 02:24 RBC 4.87 10^6/uL (3.85-5.65) 08/31/23 02:24 Hgb 15.10 g/dL (11.27-16.99) 08/31/23 02:24 Hct 44.1 % (37-53) 08/31/23 02:24 MCV 90.6 fl (82-101) 08/31/23 02:24 MCH 31.0 pg (27-33) 08/31/23 02: MCHC 34.2 g/dL (30-55) 08/31/23 02:24 RDW 13.1 % (12.1-15.1) 08/31/23 02:24 Plt Count 241 10^3/cmm (157-399) 08/31/23 02:24 MPV 9.2 fL (7.4-10.4) 08/31/23 02:24 Neut % (Auto) 65.0 % 08/31/23 02:24 Lymph % (Auto) 27.8 % 08/31/23 02:24 Crockett % (Auto) 5.3 % 08/31/23 02:24 Eos % (Auto) 1.2 % 08/31/23 02:24 Baso % (Auto) 0.5 % 08/31/23 02:24 Neut # (Auto) 5.27 10^3/uL (1.8-7.7) 08/31/23: Lymph # (Auto) 2.3 10^3/uL (0.8-4.8) 08/31/23 02: Crockett # (Auto) 0.4 10^3/uL (0.2-0.9) 08/31/23 02:24 Eos # (Auto) 0.1 10^3/uL (0.0-0.8) 08/31/23 02:24 Baso # (Auto) 0.0 10^3/uL (0.0-0.1) 08/31/23 02:24 Nucleated RBC % (auto) 0 % 08/31/23 02: Nucleated RBCs # 0.0 /100WBC 08/31/23 02:24 Sodium 139 mmol/L (136-145) 08/31/23 02:24 Potassium 3.9 mmol/L (3.5-5.1) 08/31/23 02:24 Chloride 102 mmol/L (98-107) 08/31/23 02:24 Carbon Dioxide 26 mmol/L (22-29) 08/31/23 02:24 Anion Gap 14.9 (5-19) 08/31/23 02:24 BUN 15 mg/dL (6-20) 08/31/23 02:24 Creatinine 0.9 mg/dL (0.7-1.2) 08/31/23 02:24 GFR Calculation 97.2 mL/min (90-130) 08/31/23 02:24 Glucose 113 mg/dL (65-115) 08/31/23 02:24 Calculated Osmolality 290 mOsm/kg (285-295) 08/31/23 02:24 Calcium 9.1 mg/dL (8.5-10.5) 08/31/23 02:24 Total Bilirubin 0.3 mg/dL (0.15-1.2) 08/31/23 02:24 AST 23 U/L (0-40) 08/31/23 02:24 ALT 18 U/L (0-41) 08/31/23 02:24 Alkaline Phosphatase 79 U/L (40-130) 08/31/23 02:24 Total Protein 6.5 g/dL (6.6-8.7) L 08/31/23 02:24 Albumin 4.0 g/dL (3.5-5.2) 08/31/23 02: Globulin 2.5 g/dL (1.3-4.6) 08/31/23 02:24 TSH 5.02 uIU/mL (0.27-4.20) H 08/31/23 02:24 Urine Color Yellow (Yellow) 08/31/23 02:28 Urine Appearance Clear (CLEAR) 08/31/23 02:28 Urine pH 7 (5-7) 08/31/23 02:28 Ur Specific Lovell 1.015 (1.005-1.030) 08/31/23 02:28 Urine Protein Neg (Negative) 08/31/23 02:28 Urine Glucose (UA) Norm (Normal) 08/31/23 02:28 Urine Ketones Negative (Negative) 08/31/23 02:28 Urine Blood Neg (Negative) 08/31/23 02:28 Urine Nitrate Negative (Negative) 08/31/23 02:28 Urine Bilirubin Neg (Negative) 08/31/23 02:28 Urine Urobilinogen Neg mg/dL (Negative) 08/31/23 02:28 Ur Leukocyte Esterase Negative (Negative) 08/31/23 02:28 Salicylates < 0.3 mg/dL (3-10) L 08/31/23 02:24 Urine Opiates Screen Negative ng/mL (Negative) 08/31/23 02:28 Acetaminophen < 5.0 ug/mL (10-30) L 08/31/23 02:24 Ur Barbiturates Screen Negative ng/mL (Negative) 08/31/23 02:28 Ur Phencyclidine Scrn Negative ng/mL (Negative) 08/31/23 02:28 Ur Amphetamines Screen Positive ng/mL (Negative) H 08/31/23 02:28 U Benzodiazepines Scrn Negative ng/mL (Negative) 08/31/23 02:28 Urine Cocaine Screen Negative ng/mL (Negative) 08/31/23 02:28 U Marijuana (THC) Screen Positive ng/mL (Negative) H 08/31/23 02:28 Ethyl Alcohol < 10 mg/dL (0-10) 08/31/23 02:24 No radiology studies performed this visit Discharge Plan Discharge Patient Disposition: Home Clinical Impression: Polysubstance abuse Condition: Stable Prescriptions: No Action ibuprofen 600 mg tablet 600 mg PO TID PRN (Reason: pain) Qty: 60 0RF sulfamethoxazole-trimethoprim [Bactrim DS] 800-160 mg tablet 1 tab PO BID 7 Days Qty: 14 0RF Discharge Orders: Discharge ED (Routine); Ordered 08/31/23 Ordered By: Earl Potts Referrals: Juliocesar Lawrence MD [Physician] - 1 week Patient Instructions: Polysubstance Use Disorder (ED) Activity Restrictions/Additional Instructions: Your workup to the ER shows you are medically clear. You have been referred to case management they should be contacting you within the next day or 2 to help set you up with outpatient rehab programs. If you have not heard from them please feel free to call. Coding Level of Care Code ED Felt Coverer for Franko Polk
[2023-08-31 02:27] LABS: Basophils % 0.5 %; Eosinophils # 0.1 10^3/uL (0.0-0.8); Eosinophils % 1.2 %; Hematocrit 44.1 % (37-53); Lymphocytes # 2.3 10^3/uL (0.8-4.8); Lymphocytes % 27.8 %; Mean Corpuscular HGB Conc 34.2 g/dL (30-55); Mean Corpuscular Volume 90.6 fl (82-101); Mean Platelet Volume 9.2 fL (7.4-10.4); Monocytes # 0.4 10^3/uL (0.2-0.9); Monocytes % 5.3 %; Neutrophils # 5.27 10^3/uL (1.8-7.7); Nucleated Red Blood Cells % 0 %; Platelet Count 241 10^3/cmm (157-399); Red Blood Count 4.87 10^6/uL (3.85-5.65); Red Cell Distribution Width 13.1 % (12.1-15.1); White Blood Count 8.12 10^3/uL (3.29-11.43)
[2023-08-31 02:41] LABS: Add Urine Microscopic? NO; Charge for UA Resulting for Rev
[2023-08-31 02:44] LABS: Bilirubin Urine Neg (Negative); Blood Urine Neg (Negative); Glucose Urine UA Norm (Normal); Ketones Urine Negative (Negative); Leukocyte Esterase Urine Negative (Negative); Nitrate Urine Negative (Negative); Protein Urine Neg (Negative); Specific Gravity, Urine 1.015 (1.005-1.030); Urine Appearance Clear (CLEAR); Urine Color Yellow (Yellow); Urobilinogen Urine Neg (Negative); pH Urine 7 (5-7)
[2023-08-31 02:51] LABS: Amphetamines Screen Urine Positive (Negative); Barbiturates Screen Urine Negative (Negative); Benzodiazepines Screen Urine Negative (Negative); Cocaine Screen Urine Negative (Negative); Opiate Screen Urine Negative (Negative); PCP Screen Urine Negative (Negative); THC Screen Urine Positive (Negative)
[2023-08-31 02:53] LABS: Alanine Aminotransferase 18 U/L (0-41); Alkaline Phosphatase 79 U/L (40-130); Aspartate Amino Transferase 23 U/L (0-40); Blood Urea Nitrogen 15 mg/dL (6-20); Calcium 9.1 mg/dL (8.5-10.5); Carbon Dioxide 26 mmol/L (22-29); Chloride 102 mmol/L (98-107); Globulin 2.5 g/dL (1.3-4.6); Glomerular Filtration Rate 97.2 mL/min (90-130); Glucose 113 mg/dL (65-115); Osmolality Calculated 290 mOsm/kg (285-295); Sodium 139 mmol/L (136-145); Total Bilirubin 0.3 mg/dL (0.15-1.2); Total Protein 6.5 g/dL (6.6-8.7)
[2023-08-31 02:54] LABS: Acetaminophen < 5.0 ug/mL (10-30); Alcohol Level < 10 mg/dL (0-10); Anion Gap 14.9 (5-19); Potassium 3.9 mmol/L (3.5-5.1); Salicylate < 0.3 mg/dL (3-10)
[2023-08-31 03:10] LABS: Thyroid Stimulating Hormone 5.02 uIU/mL (0.27-4.20)
--- NOTE | 2023-08-31 10:08 | DCPLANNER ---
Message was sent to [facility] and Kenyatta berrios to get this patient set up with outpatient rehab for polysubstance abuse. message was sent at [phone] on 08/31/23
== END 2023-08-31 04:06 | disposition home or self-care (01) ==
PROVIDERS: Emergency Provider Emergency Medicine
DX: F19.10 Other psychoactive substance abuse, uncomplicated (principal); Z72.0 Tobacco use
CPT/HCPCS: 36415; 80053; 80306; 80307; 81003; 84443; 85025; 99283

== ENCOUNTER 2023-10-22 12:17 | Emergency (ER) | payer BC, MEDICAID, SELFPAY ==
[2023-10-22] VITALS (13 sets, daily range): BP systolic 124–154; BP diastolic 69–106; PULSE 85–161; RESP 15–20; TEMP 36.9; O2SAT 91–100
--- NOTE | 2023-10-22 12:24 | XR_ITS ---
WS: [id number] Examination: XR knee LT 1-2V 71800 Reason for Exam: fall Date: October 22, 2023 Comparison: None. Findings: The bone density is maintained. There is no destruction. There is no fracture or dislocation. No join t effusion is present. IMPRESSION: No acute bony abnormalities identified involving the left knee.
--- NOTE | 2023-10-22 12:24 | XR_ITS ---
WS: [id number] Examination: XR foot LT min 3V* [id number] Reason for Exam: injury Date: October 22, 2023 Comparison: November 09, 2021 Findings: There is a lateral peritalar dislocation. Calcaneus and foot bilateral to the talus. There is a chip fracture off the talus. A healed second metatarsal fracture is noted. Impression: There is lateral peritalar dislocation with associated chip fracture. A CT of the ankle/foot would be of benefit to evaluate other potential fractures when the patient can tolerate. Orthopedic consultation is needed. I called this report to Danielle in the emergency room
--- NOTE | 2023-10-22 12:24 | XR_ITS ---
WS: [id number] Examination: XR ankle LT min 3V* [id number] Reason for Exam: injury Date: October 22, 2023 Comparison: None. Findings: The bone density is maintained. There are findings of lateral peritalar dislocation. The tibiotalar joint and ankle mortise appear pr eserved. There is lateral dislocation of the calcaneus, midfoot, and forefoot relative to the talus There is a chip fracture identified along the medial aspect of the distal talus. Impression: There is lateral peritalar dislocation. The calcaneus and foot lie laterally. Associated chip fracture is noted. CT may be of benefit for complete evaluation. Orthopedic consultation is needed. I called these results to Danielle in the emergency room at 1:48 p.m. October 22, 2023.
[2023-10-22] MEDS: ondansetron 2 mg/ML SDV 2 mL 4 MG IVP (12:30)
[2023-10-22] MEDS: HYDROmorphone 1 mg/mL INJ 1 mL IVP ×2 (12:30→13:05)
--- NOTE | 2023-10-22 12:33 | ED_ITS ---
HPI - Extremity Problem General: Chief complaint: Extremity Injury, Lower Stated complaint: left leg pain Time Seen by Provider: 10/22/23 12:24 Source: patient Mode of arrival: ambulatory Limitations: no limitations History of Present Illness: 33-year-old male states he had fell out of a tree today states that he landed on his left foot he has obvious deformity his left ankle he is complaining severe pain in his left ankle he rates it a 10 out of 10. He denies any other injuries denies hitting his head denies any loss of consciousness. Associated symptoms: Deny chest pain, fever(s) or rash Review of Systems Const: Denies: fever(s) or chills ENMT: Denies: throat pain or dental pain Card: Denies: chest pain Resp: Denies: dyspnea GI: Denies: abdominal pain, nausea, vomiting or diarrhea Musc: Reports: extremity pain; Denies: neck pain or back pain Skin/Breast: Denies: rash Neuro: Denies: headache(s) PFSH ED PFSH: Medical History Polysubstance abuse Surgical History History of excision of epidermal inclusion cyst No history of previous surgery Social History Smoking and tobacco/nicotine status: current every day tobacco/nicotine user Alcohol intake: current Substance/Drug Use: current Physical Exam Const: COMMON NORMALS: patient oriented x3 HENMT: COMMON NORMALS: normocephalic and atraumatic HEAD & SCALP: normocephalic and atraumatic Eye: COMMON NORMALS: Equal, round and reactive pupils present and EOMs intact bilaterally PUPIL: Yes Equal, round and reactive pupils present Neck/C-Spine: COMMON NORMALS: full ROM and supple Chest: COMMONS NORMALS: normal inspection of the chest Resp: COMMON NORMALS: normal respiratory effort Extremity: NARRATIVE EXTREMITY EXAM: Obvious deformity left ankle distal pulses sensation intact Neuro: COMMON NORMALS: patient oriented x3, moves all extremities and no focal motor deficits Psych: COMMON NORMALS: mental status grossly normal, Normal thought process present and cooperative THOUGHT PROCESS: Normal thought process present Skin: COMMON NORMALS: no rashes or lesions noted and no wounds GENERAL SKIN EXAM: no rashes or lesions noted Procedures Orthopedic Joint Reduction Joint #1: Time Out Performed: Yes Side: left Joint Reduction Location: other (talar) Analgesia: procedural sedation Technique used: traction/counter-traction Post-reduction neuro exam: intact Post-reduction vascular: intact Post Reduction X-Ray Obtained: Yes Post Reduction X-Ray Results: reduced Splint Applied: Yes Patient Tolerated Procedure: well Procedural Sedation Indication: fracture/dislocation reduction ASA Class: I Time of Last PO Intake: 08:00 Preparation: pulse oximeter Ketamine: IV and IM (350) Ketamine dose (mg): 150 IV Propofol dose (mg): 170 Course Vital Signs: Vital signs: Vital Signs Temperature 98.5 F 10/22/23 12:25 Pulse Rate 109 H 10/22/23 14:39 Respiratory Rate 18 10/22/23 14:39 Blood Pressure 124/88 10/22/23 14:39 Pulse Oximetry 98 10/22/23 14:39 Oxygen Delivery Me thod Room Air 10/22/23 14:39 Oxygen Flow Rate 6 10/22/23 13:57 MDM - Extremity (Nontraumatic) Medical Decision Making Patient presents with a talar dislocation was reduced in the ER patient was seen by podiatry and is to follow-up tomorrow morning with podiatry we will prescribe him pain meds he is return if worsening he understands agrees to plan. Medical Records I reviewed the patient's medical records. All radiology interpretation(s) finalized by discharge Discharge Plan Discharge Patient Disposition: Home Clinical Impression: Closed dislocation of left talus Condition: Stable Prescriptions: New hydrocodone-acetaminophen 5-325 mg tablet 1 tab PO Q6H PRN (Reason: pain) Qty: 14 0RF No Action aspirin 325 mg Tablet 975 mg PO Q8H PRN (Reason: Pain) Discharge Orders: Discharge ED (Routine); Ordered 10/22/23 Ordered By: Moreno Rivera Referrals: Reji Villalobos DPM [Physician] - 1-3 days Discharge Diet: Advance as tolerated Discharge Activity: Use walker/crutches as instructed Patient Instructions: Dislocation - Ankle, Opioid Safety Coding Level of Care Code ED Range Feeder for Franko Polk
--- NOTE | 2023-10-22 13:37 | XR_ITS ---
WS: [id number] Examination: XR ankle LT 2V [id number] Reason for Exam: post reduction Date: October 22, 2023, 2:02 p.m. Comparison: October 22, 2023, 1:16 p.m. Findings: A splint has been applied to the left ankle. There has been reduction of the lateral peritalar dislocation. While the fine bony details obscured. I suspect there are talar fractures and probably possibly calca francis fractures. CT may be of benefit for further evaluation. Impression: Satisfactory reduction of the peritalar dislocation. Please see above.
[2023-10-22] MEDS: propofol 10 mg/mL SDV 20 mL 100 MG IVP (13:43)
[2023-10-22] MEDS: propofol 10 mg/mL SDV 20 mL 70 MG IVP (13:47)
[2023-10-22] MEDS: ketamine 100 mg/mL Inj 5 mL 350 MG IM (13:48)
[2023-10-22] MEDS: ketamine 100 mg/mL Inj 5 mL 150 MG IVP (14:10)
--- NOTE | 2023-10-22 14:24 | PC.NURSE ---
pt still not oriented, restless post sedation
--- NOTE | 2023-10-22 14:32 | PM.CONSULT ---
Providers/Reason For Consult Consulting Physician/Specialty*: Reji Villalobos D.P.M. Reason for Consult*: Left subtalar joint dislocation History of Present Illness History of Present Illness Evert Worrell is a 33 year old male Medications/Allergies Home Medications Medication Instructions Recorded Confirmed Last Taken Type aspirin 325 mg tablet 975 mg PO Q8H PRN Pain 10/22/23 10/23/23 Unknown History hydrocodone 5 mg-acetaminophen 325 1 tab PO Q6H PRN pain #14 tabs 10/22/23 10/23/23 Unknown Rx mg tablet Allergies Allergy/AdvReac Type Severity Reaction Status Date / Time No Known Allergies Allergy Verified 10/23/23 06:59 PFSH Acute PFSH: Medical History Polysubstance abuse Surgical History History of excision of epidermal inclusion cyst No history of previous surgery Social History Smoking and tobacco/nicotine status: current every day tobacco/nicotine user Alcohol intake: current Substance/Drug Use: current Vitals/I&O/Wt Last Vital Signs Temp 98.5 F 10/22/23 12:25 Pulse 108 H 10/22/23 14:31 Resp 16 10/22/23 14:31 BP 124/88 10/22/23 14:31 Pulse Ox 98 10/22/23 14:31 O2 Del Method Room Air 10/22/23 14:31 O2 Flow Rate 6 10/22/23 13:57 Weight last 48 hrs Weight 170 lb Coding Level of Care Code Acute Code for Chg Fwd
--- NOTE | 2023-10-23 10:59 | ED_ITS ---
HPI - Extremity Problem General: Chief complaint: Extremity Injury, Lower Stated complaint: left leg pain Time Seen by Provider: 10/22/23 12:24 Source: patient Mode of arrival: ambulatory Limitations: no limitations History of Present Illness: 33-year-old male fell out of a tree land ed on a rock, presents with pain of the left foot with obvious deformity. Associated symptoms: Deny chest pain, fever(s) or rash Review of Systems General: Reports: 10 or more systems reviewed and unremarkable except in HPI and below Const: Denies: fever(s) or chills Eyes: Denies: change in vision Card: Denies: chest pain or palpitations Resp: Denies: dyspnea or productive cough GI: Denies: abdominal pain, nausea or vomiting : Denies: flank pain Musc: Reports: extremity pain, joint pain, joint stiffness, limited range of motion and deformity Skin/Breast: Reports: skin tenderness; Denies: rash Neuro: Reports: difficulty walking; Denies: numbness in extremities, sensory changes or frequent falls Psych: Denies: suicidal ideation Yobany/Lymph: Denies: easy bruising [facility] ED PFSH: Medical History Polysubstance abuse Surgical History History of excision of epidermal inclusion cyst No history of previous surgery Social History Smoking and tobacco/nicotine status: current every day tobacco/nicotine user Alcohol intake: current Substance/Drug Use: current Physical Exam Narrative: EXAM NARRATIVE: GENERAL: Patient is alert and oriented ?3 and in no acute distress. The following is a focused bilateral lower extremity exam. VASCULAR: Dorsalis pedis and posterior tibial arteries palpable +2. Capillary refill time less than 3 seconds to the distal hallux bilaterally. Calf is supple and nontender proximally and distally. No pedal edema appreciated. Pedal hair growth present. NEUROLOGICAL: Epicritic and protopathic sensations grossly intact to the lower extremities. +2 Achilles tendon reflex noted bilaterally. Negative Tinel sign upon percussion of lower extremity nerves. DERMATOLOGICAL: Lower extremity skin is well-hydrated, normal texture and turgor. There are no open sores or lesions noted to the lower extremities. No abrasions or lacerations to left foot, no open wound, no fracture blisters, mild ecchymosis at the right foot. MUSCULOSKELETAL: Pain at the left rear foot. Able to wiggle toes on command. Able to dorsiflex and plantarflex left ankle. No pain at the lateral malleolus or medial malleolus of the left ankle, no pain at left Lisfranc. No gross deformity post reduction. Course Vital Signs: Vital signs: Vital Signs Temperature 98.5 F 10/22/23 12:25 Pulse Rate 109 H 10/22/23 14:39 Respiratory Rate 18 10/22/23 14:39 Blood Pressure 124/88 10/22/23 14:39 Pulse Oximetry 98 10/22/23 14:39 Oxygen Delivery Me thod Room Air 10/22/23 14:39 Oxygen Flow Rate 6 10/22/23 13:57 MDM - Extremity (Nontraumatic) Medical Decision Making Closed dislocation of left subtalar joint and talonavicular joint. Anatomic reduction was performed by emergency room physician under sedation and splint with stirrup was applied. Patient advised to remain strict nonweightbearing, elevate left foot while resting. He has crutches. Will avoid opiates given his history of polysubstance abuse and his current efforts in rehabilitation. Follow-up tomorrow morning in podiatry clinic 7 AM for repeat x-ray to monitor reduction status. All radiology interpretation(s) finalized by discharge Discharge Plan Discharge Patient Disposition: Home Clinical Impression: Closed dislocation of left talus Qualifiers: Encounter type: subsequent encounter Qualified Code(s): S93.05XD - Dislocation of left ankle joint, subsequent encounter Condition: Stable Prescriptions: New hydrocodone-acetaminophen 5-325 mg tablet 1 tab PO Q6H PRN (Reason: pain) Qty: 14 0RF No Action aspirin 325 mg Tablet 975 mg PO Q8H PRN (Reason: Pain) Discharge Orders: Discharge ED (Routine); Ordered 10/22/23 Ordered By: Moreno Rivera Referrals: Reji Villalobos DPM [Physician] - 1-3 days Discharge Diet: Advance as tolerated Discharge Activity: Use walker/crutches as instructed Patient Instructions: Dislocation - Ankle, Opioid Safety Coding Level of Care Code ED Finisher Hand for Franko Polk
--- NOTE | 2023-10-24 08:08 | DCPLANNER ---
Message sent to Podiatry for a follow up - dislocated ankle
== END 2023-10-22 15:53 | disposition home or self-care (01) ==
PROVIDERS: Emergency Provider Emergency Medicine
DX: S93.05XA Dislocation of left ankle joint, initial encounter (principal); Z72.0 Tobacco use; W14.XXXA Fall from tree, initial encounter
CPT/HCPCS: 27840; 73560; 73562; 73600; 73610; 73630; 94799; 96372; 96374; 96375; 99285; 99291; J1170; J2405; J2704; J3490

== ENCOUNTER → 2023-10-23 06:52 | Outpatient (BNVA) | payer BC, MEDICAID, SELFPAY | PROVIDERS: Visit Provider Podiatrist Foot & Ankle Surgery | DX: S93.05XD Dislocation of left ankle joint, subsequent encounter; W14.XXXD Fall from tree, subsequent encounter | CPT/HCPCS: 73610 ==

== ENCOUNTER → 2023-11-01 11:34 | Outpatient (BNVA) | payer BC, MEDICAID, SELFPAY | PROVIDERS: Visit Provider Podiatrist Foot & Ankle Surgery | DX: S93.05XD Dislocation of left ankle joint, subsequent encounter (principal); W14.XXXD Fall from tree, subsequent encounter | CPT/HCPCS: 29405; 73610 ==

== ENCOUNTER → 2023-11-19 08:19 | Outpatient (BNVA) | payer BC, MEDICAID, SELFPAY | PROVIDERS: Visit Provider Podiatrist Foot & Ankle Surgery | DX: S93.05XD Dislocation of left ankle joint, subsequent encounter (principal); W14.XXXD Fall from tree, subsequent encounter | CPT/HCPCS: 73610 ==

== ENCOUNTER → 2023-12-03 07:45 | Outpatient (BNVA) | payer BC, MEDICAID, SELFPAY | PROVIDERS: Visit Provider Podiatrist Foot & Ankle Surgery | DX: S93.05XD Dislocation of left ankle joint, subsequent encounter (principal); W14.XXXD Fall from tree, subsequent encounter | CPT/HCPCS: 73630 ==

== ENCOUNTER 2024-06-14 22:15 | Emergency (ER) | payer BC, MEDICAID, SELFPAY ==
[2024-06-14 22:19] VITALS: BP 118/76; PULSE 65; RESP 17; TEMP 36.4; O2SAT 99; BMI 27.4
[2024-06-14] MEDS: lidocaine 1% 10 ML INJ INTRADERMA (22:28)
[2024-06-14] MEDS: tetanus-dipt-pertussis 0.5 mL SDV IM (22:29)
--- NOTE | 2024-06-14 22:33 | ED_ITS ---
HPI - Wound/Laceration General: Chief Complaint: Wound/Laceration Stated Complaint: Rt Eye Injury Time Seen by Provider: 06/14/24 22:20 Source: patient Mode of arrival: ambulatory Limitations: no limitations History of Present Illness: 33-year-old male states he had his right eyebrow on a car door just prior to arrival does have a laceration over his right eyebrow roughly 3 cm. He denies any loss of consciousness has minimal pain. Associated symptoms: Denies chills or fever(s) Related Data Home Medications Medication Instructions Recorded Confirmed aspirin 325 mg tablet 975 mg PO Q8H PRN Pain 10/22/23 12/03/23 Previous Rx's Medication Instructions Recorded CAM walker #1 ea 12/03/23 Allergies Allergy/AdvReac Type Severity Reaction Status Date / Time No Known Allergies Allergy Verified 06/14/24 22:18 Review of Systems Const: Denies: fever(s), chills, body aches or change in appetite Eyes: Denies: blurry vision or eye discomfort ENMT: Denies: throat pain or dental pain Card: Denies: chest pain GI: Denies: abdominal pain Musc: Denies: neck pain or back pain Neuro: Denies: headache(s) PFSH ED PFSH: Medical History Polysubstance abuse Surgical History History of excision of epidermal inclusion cyst No history of previous surgery Social History Smoking and tobacco/nicotine status: current every day tobacco/nicotine user Alcohol intake: current Substance/Drug Use: current Physical Exam Const: COMMON NORMALS: no acute distress, patient oriented x3 and healthy appearing HENMT: COMMON NORMALS: normocephalic HEAD & SCALP: normocephalic OTHER: 3cm laceration to right eyebrow Eye: COMMON NORMALS: Equal, round and reactive pupils present and EOMs intact bilaterally PUPIL: Yes Equal, round and reactive pupils present Neck/C-Spine: COMMON NORMALS: full ROM and supple Chest: COMMONS NORMALS: normal inspection of the chest Resp: COMMON NORMALS: normal respiratory effort Extremity: COMMON NORMALS: normal to inspection and full ROM Neuro: COMMON NORMALS: patient oriented x3, moves all extremities and no focal motor deficits Psych: COMMON NORMALS: mental status grossly normal, Normal thought process present and cooperative THOUGHT PROCESS: Normal thought process present Skin: COMMON NORMALS: no rashes or lesions noted GENERAL SKIN EXAM: no rashes or lesions noted Procedures Laceration Laceration 1: Site: face Side (If applicable): right Size (cm): 3 Description: linear Depth: simple, single layer Local Anesthetic: lidocaine 1% Amount of anesthesia used (mL): 8 Pre-repair: wound explored, irrigated extensively and deep structures intact Skin layer closed with: nylon Size (cm): 5-0 Number of sutures: 4 Technique: simple, interrupted Course Vital Signs: Vital signs: Vital Signs Temperature 97.6 F 06/14/24 22:19 Pulse Rate 65 06/14/24 22:19 Respiratory Rate 17 06/14/24 22:19 Blood Pressure 118/76 06/14/24 22:19 Pulse Oximetry 99 06/14/24 22:19 Oxygen Delivery Me thod Room Air 06/14/24 22:19 MDM - Wound/Laceration Medical Decision Making Patient presents here with laceration to right eyebrow did repair laceration with sutures no major head injury no loss conscious he stable for discharge suture removal in 7 days Medical Records I reviewed the patient's medical records. No radiology studies performed this visit Discharge Plan Discharge Patient Disposition: Home Clinical Impression: Laceration Condition: Stable Prescriptions: No Action (DME) CAM walker See Rx Instructions .Route .MEDSUPPLY Qty: 1 0RF Rx Instructions: As directed aspirin 325 mg Tablet 975 mg PO Q8H PRN (Reason: Pain) Discharge Orders: Discharge ED (Routine); Ordered 06/14/24 Ordered By: Moreno Rivera Discharge Diet: Advance as tolerated Discharge Activity: Resume usual activity Patient Instructions: Care For Your Stitches (ED), Laceration (ED) Activity Restrictions/Additional Instructions: suture removal in 7 days Coding Level of Care Code ED Construction Job Cost Estimator for Franko Polk
== END 2024-06-14 22:42 | disposition home or self-care (01) ==
PROVIDERS: Emergency Provider Emergency Medicine
DX: S01.81XA Laceration without foreign body of other part of head, initial encounter (principal); X58.XXXA Exposure to other specified factors, initial encounter
CPT/HCPCS: 12013; 90471; 90715; 99283

== ENCOUNTER 2024-06-23 15:22 | Emergency (ER) | payer BC, MEDICAID, SELFPAY ==
[2024-06-23 15:29] VITALS: BP 133/73; PULSE 61; RESP 16; TEMP 36.7; O2SAT 98
--- NOTE | 2024-06-23 15:33 | ED_ITS ---
HPI - Recheck/Abnormal Lab/Rx 2 General: Chief Complaint: Wound/Laceration Stated Complaint: stiches removed Time Seen by Provider: 06/23/24 15:30 Source: patient and family Mode of arrival: ambulatory Limitations: no limitations History of Present Illness: Patient is a 33-year-old male here for suture removal to his right eyebrow. Sutures were placed in 06/14. He states he has not had any issues with them and the wound seems to be healed. complaint: suture/staple removal Initial visit (ago): day(s) Initial visit for: laceration Returns today for: staple/stitch removal Symptoms since prior visit: no new symptoms Associated symptoms: none Related Data Home Medications Medication Instructions Recorded Confirmed aspirin 325 mg tablet 975 mg PO Q8H PRN Pain 10/22/23 12/03/23 Previous Rx's Medication Instructions Recorded CAM walker #1 ea 12/03/23 Allergies Allergy/AdvReac Type Severity Reaction Status Date / Time No Known Allergies Allergy Verified 06/23/24 15:32 Review of Systems 2 Const: Denies: fever(s) Eyes: Denies: change in vision or blurry vision Skin/Breast: Reports: other (healed laceration) Neuro: Denies: headache(s) PFSH ED 2 PFSH: Medical History Polysubstance abuse Surgical History History of excision of epidermal inclusion cyst No history of previous surgery Social History Smoking and tobacco/nicotine status: current every day tobacco/nicotine user Alcohol intake: current Substance/Drug Use: current Physical Exam 2 Const: COMMON NORMALS: no acute distress, average body habitus, patient oriented x3, no limitations, healthy appearing, alert and well nourished HENMT: FACE & SINUS IMAGES: 1. healed laceration; clean/infection free; 4 intact sutures removed Neuro: COMMON NORMALS: patient oriented x3 SENSORIUM/ORIENTATION: Yes alert Course 2 Vital Signs: Vital signs: Vital Signs Temperature 98.0 F 06/23/24 15:29 Pulse Rate 61 06/23/24 15:29 Respiratory Rate 16 06/23/24 15:29 Blood Pressure 133/73 06/23/24 15:29 Pulse Oximetry 98 06/23/24 15:29 Oxygen Delivery Me thod Room Air 06/23/24 15:29 MDM - Recheck/Abnormal Lab/Rx Medical Decision Making Sutures removed. Wound is clean and well healed. Differential Diagnosis Likely encounter for removal of sutures No radiology studies performed this visit Discharge Plan Discharge Patient Disposition: Home Clinical Impression: Encounter for removal of sutures Condition: Stable Prescriptions: No Action (DME) CAM walker See Rx Instructions .Route .MEDSUPPLY Qty: 1 0RF Rx Instructions: As directed aspirin 325 mg Tablet 975 mg PO Q8H PRN (Reason: Pain) Discharge Orders: Discharge ED (Routine); Ordered 06/23/24 Ordered By: Maryjane Fox Patient Instructions: Stitches Removal (ED) Coding Level of Care Code ED Manager Desktop for Franko Polk
[2024-06-23 15:36] VITALS: BP 111/74; PULSE 71; O2SAT 97
== END 2024-06-23 15:37 | disposition home or self-care (01) ==
PROVIDERS: Emergency Provider Physician Assistant
DX: Z48.02 Encounter for removal of sutures (principal)
CPT/HCPCS: 99281